=== PATIENT | female | born 1990 | race African-American/Black ===

== ENCOUNTER 2019-10-03 17:24 | Emergency (ER) | payer OTHER, SELFPAY ==
--- NOTE | 2019-10-03 17:30 | ED.URI ---
HPI - URI/Sore Throat General Chief Complaint: Upper Respiratory Infection Stated Complaint: sore throat Time Seen by Provider: 10/03/19 17:30 Source: patient and RN notes reviewed History of Present Illness HPI Narrative: Patient is a 29-year-old female that presents the urgent care with complaints of sore throat that started last night. Patient states she has been very fatigued throughout the day and woke up after her nap feeling like a truck hit her . Patient states she now has chills and sweats along with body aches, runny nose. Denies any known fever, nausea, vomiting. Patient has used 1 dose of NyQuil for her symptoms. No other acute complaints. No acute distress noted. Patient read the plan of care. Related Data Home Medications Medication Instructions Recorded Confirmed No Home Medications 10/03/19 10/03/19 Allergies Allergy/AdvReac Type Severity Reaction Status Date / Time No Known Allergies Allergy Unverified 10/03/19 17:31 Review of Systems Review of Systems: Narrative: CONSTITUTIONAL: Reports of chills, sweats, fatigue EYES: Denies visual changes, redness, or discharge. ENT: Reports of sore throat CARDIOVASCULAR: Denies chest pain, palpitations, or edema. RESPIRATORY: Denies cough or dyspnea. GASTROINTESTINAL: Denies abdominal pain, nausea, vomiting, or diarrhea. GENITOURINARY: Denies dysuria or hematuria. SKIN: Denies rash or itching. MUSCULOSKELETAL: Denies back pain, joint pain,; reports of body aches NEUROLOGIC: Denies headache, numbness, or weakness. All other systems reviewed are negative, except as documented in HPI. PMFSH Comments At the time of my signature, I reviewed and agree with the nursing past medical, surgical, social, and family history. There is no relevant family history pertinent to the patient complaint. Exam Narrative: Exam Narrative: GENERAL: This is a well-nourished, well-developed patient, appears slightly fatigued HEAD: normocephalic, atraumatic. EYES: PERRL. Sclera clear/white. Vision is grossly intact. EARS: External ears normal, auditory canals clear and without drainage, TMs normal without perforation. Hearing grossly intact. NOSE: External nose normal with no obvious nasal discharge, nares without redness, clear rhinorrhea. THROAT: Mucous membranes moist, posterior pharynx clear. Mild postnasal drainage NECK: Neck supple, non-tender without lymphadenopathy CARDIOVASCULAR: Regular rate and rhythm without murmurs, gallops, or rubs. RESPIRATORY: Clear to auscultation. Breath sounds equal bilaterally. No wheezes, rales, or rhonchi. SKIN: warm, intact with no suspicious lesions or rash, good texture and turgor. NEURO: awake, alert, and oriented to person, place and time. There were no obvious focal neurologic abnormalities. EXTREMITIES: No clubbing, cyanosis, or edema. Course Vital Signs Vital signs: Vital Signs Temperature 97.9 F 10/03/19 17:34 Pulse Rate 70 10/03/19 17:34 Respiratory Rate 16 10/03/19 17:34 Blood Pressure 144/92 H 10/03/19 17:34 Pulse Oximetry 100 10/03/19 17:34 Temperature 97.9 F 10/03/19 17:34 Pulse Rate 70 10/03/19 17:34 Respiratory Rate 16 10/03/19 17:34 Blood Pressure 144/92 H 10/03/19 17:34 Pulse Oximetry 100 10/03/19 17:34 Reviewed?patient is informed that they may have pre-hypertension or hypertension based on a blood pressure reading in the department. I recommend the patient call the primary care provider listed on their discharge instructions or a physician of their choice this week to arrange follow-up for further evaluation of possible pre-hypertension or hypertension. MDM - URI/Sore Throat MDM Narrative Medical decision making narrative: Reviewed lab results with the patient. She is aware that strep swab negative. Educated her on culture and will call within 72 hours if culture is positive and antibiotics are necessary. Aware that flu swab was negative. Advised the patient to use Claritin and Merlin
[2019-10-03 17:34] VITALS: BP 144/92; PULSE 70; RESP 16; TEMP 36.6; O2SAT 100
== END 2019-10-03 18:18 | disposition home or self-care (01) ==
PROVIDERS: Emergency Provider Nurse Practitioner Family
DX: J06.9 Acute upper respiratory infection, unspecified (principal); J02.9 Acute pharyngitis, unspecified
CPT/HCPCS: 87081; 87804; 87880; 99203; G0463

== ENCOUNTER 2019-10-11 18:16 | Emergency (ER) | payer OTHER, SELFPAY ==
[2019-10-11 18:23] VITALS: BP 158/93; PULSE 82; RESP 19; TEMP 37.6; O2SAT 100
--- NOTE | 2019-10-11 18:25 | ED.GENADULT ---
HPI - General Adult General Chief complaint: Upper Respiratory Infection Stated complaint: cough/chest hurts Time Seen by Provider: 10/11/19 18:30 Source: patient and RN notes reviewed Mode of arrival: ambulatory Limitations: no limitations History of Present Illness HPI narrative: This is a 29 years old female presents to the office for possible flu. Stated she was seen for cold symptoms a week ago, her symptom has gotten better with [id number] DayQuil however her daughter was diagnosed with influenza on Friday, she was concerned that she might influenza as well. State, she still has runny nose, cough and drainage. She does not smoke. I reviewed patient's previous visit. HPI - URI/Sore Throat General Chief Complaint: Upper Respiratory Infection Stated Complaint: sore throat Time Seen by Provider: 10/03/19 17:30 Source: patient and RN notes reviewed History of Present Illness HPI Narrative: Patient is a 29-year-old female that presents the urgent care with complaints of sore throat that started last night. Patient states she has been very fatigued throughout the day and woke up after her nap feeling like a truck hit her . Patient states she now has chills and sweats along with body aches, runny nose. Denies any known fever, nausea, vomiting. Patient has used 1 dose of NyQuil for her symptoms. No other acute complaints. No acute distress noted. Patient read the plan of care. Related Data Allergies Allergy/AdvReac Type Severity Reaction Status Date / Time No Known Allergies Allergy Unverified 10/03/19 17:31 Review of Systems Review of Systems: Narrative: CONSTITUTIONAL: Denies fever ENT: Denies ears pain. Reports runny nose, sneezing CARDIOVASCULAR: Denies chest pain RESPIRATORY: Denies dyspnea. Reports dry/deep cough GASTROINTESTINAL: Denies abdominal pain, nausea, vomiting, diarrhea. GENITOURINARY: Denies urinary symptoms or discharge SKIN: Denies rash MUSCULOSKELETAL: Denies acute back pain NEUROLOGIC: Denies lightheaded PMFSH Family History Family History Other Diabetes mellitus Hypothyroid Comments At time of signature, I agree with nursing past medical, surgical, social and family history. There is no relevant family history pertinent to the presenting complaint. Exam Narrative: Exam Narrative: GENERAL: This is a well-nourished, well-developed patient, in no apparent distress. EYES: Sclera clear/white. Vision is grossly intact. EARS: External ears normal, auditory canals clear and without drainage, TMs normal without perforation. Hearing grossly intact. NOSE: External nose normal with no obvious nasal discharge, nares edematous and erythema. THROAT: Mucous membranes moist, posterior pharynx pink with drainage NECK: Neck supple, non-tender without lymphadenopathy, masses or thyromegaly. CARDIOVASCULAR: Regular rate and rhythm without murmurs, gallops, or rubs. RESPIRATORY: Clear to auscultation. Breath sounds equal bilaterally. No wheezes, rales, or rhonchi. GASTROINTESTINAL: Abdomen soft, non-tender, nondistended. Bowel sounds are active. No guarding. NEURO: awake, alert, and oriented to person, place and time. There were no obvious focal neurologic abnormalities. Steady gait Gypsy Coma Scale Eye Opening: Spontaneous 4 Gypsy Coma Scale Motor: Obeys Commands 6 Gypsy Coma Scale Verbal: Oriented 5 Course Vital Signs Vital signs: Vital Signs Temperature 99.6 F 10/11/19 18:23 Pulse Rate 82 10/11/19 18:23 Respiratory Rate 19 10/11/19 18:23 Blood Pressure 158/93 H 10/11/19 18:23 Pulse Oximetry 100 10/11/19 18:23 Temperature 99.6 F 10/11/19 18:23 Pulse Rate 82 10/11/19 18:23 Respiratory Rate 19 10/11/19 18:23 Blood Pressure 158/93 H 10/11/19 18:23 Pulse Oximetry 100 10/11/19 18:23 Medical Decision Making MDM Narrative Medical decision making narrative: Elevated BP noted: patient is informed
== END 2019-10-11 18:53 | disposition home or self-care (01) ==
PROVIDERS: Emergency Provider Nurse Practitioner
DX: J06.9 Acute upper respiratory infection, unspecified (principal)
CPT/HCPCS: 87804; 99213; G0463

== ENCOUNTER 2019-11-08 07:48 | Emergency (ER) | payer OTHER, SELFPAY ==
--- NOTE | ~2019-11-08 | XR_ITS ---
EXAMINATION: XR chest 2V DATE: 11/08/2019 08:33 INDICATION: Cough and shortness of breath TECHNIQUE: PA and lateral views of the chest are obtained. COMPARISON: None available FINDINGS: The lungs are free of acute opacities. There is no pleural effusion or pneumothorax. The ca rdiomediastinal silhouette is normal. The visualized bones and soft tissues are unremarkable. IMPRESSION: 1. No acute cardiopulmonary abnormality. Reviewed, dictated and finalized at location A.
[2019-11-08 07:58] VITALS: BP 155/97; PULSE 70; RESP 18; TEMP 36.8; O2SAT 100
--- NOTE | 2019-11-08 08:19 | PC.NURSE ---
PT TO XRAY AT THIS TIME PER TECH.
--- NOTE | 2019-11-08 08:22 | ED.URI ---
HPI - URI/Sore Throat General Chief Complaint: Upper Respiratory Infection Stated Complaint: COUGH/COLD S/SX Time Seen by Provider: 11/08/19 08:20 History of Present Illness HPI Narrative: 29 f c/o > a month of mild uri sx w/ prior [facility] [place] visits 4 and 5 weeks ago notes she just felt like it ought to be checked again today, nothing per se has changed mainly c/o sinus congestion and a postnasal drip causing a itchy, scratchy throat and ocassional cough no fever, no ill contacts, not sob she took theraflu but it did not resolve the symptoms MD elicited complaint: cough, rhinorrhea and nasal congestion Onset (ago): week(s) Severity: mild Description of mucous: clear Related Data Home Medications Medication Instructions Recorded Confirmed No Home Medications 11/08/19 11/08/19 Allergies Allergy/AdvReac Type Severity Reaction Status Date / Time No Known Allergies Allergy Unverified 11/08/19 08:02 Review of Systems Constitutional: Constitutional: Denies chills, Denies fatigue, Denies fever(s) and Denies weakness ENT: Reports system reviewed and no additional complaints, except as documented Cardiovascular: Cardiovascular: Reports no additional cardiovascular complaints Respiratory: Respiratory: Reports cough, Denies dyspnea and Denies wheezing Gastrointestinal: Gastrointestinal: Denies nausea and Denies vomiting Musculoskeletal: Musculoskeletal: Denies myalgias and Denies arthralgias Neurologic: Denies focal weakness [facility] Social History Social History Gender identity (if verbalized by the patient): Female Exam Const: General: no acute distress and alert Orientation/consciousness: patient oriented x3 Eyes: Conjunctivae: conjunctivae normal EOM: EOMs intact bilaterally Neck: Neck: normal visual inspection Chest: Chest palpation & inspection: normal inspection of the chest Resp: Effort & Inspection: normal respiratory effort Cardio: Rate: regular rate Skin: General skin exam: normal color Rashes: no rashes Neuro: General: patient oriented x3 and moves all extremities Course Vital Signs Vital signs: Vital Signs Temperature 36.8 C 11/08/19 07:58 Pulse Rate 70 11/08/19 07:58 Respiratory Rate 18 11/08/19 07:58 Blood Pressure 155/97 H 11/08/19 07:58 Pulse Oximetry 100 11/08/19 07:58 Temperature 36.8 C 11/08/19 07:58 Pulse Rate 78 11/08/19 10:25 Respiratory Rate 16 11/08/19 10:25 Blood Pressure 154/78 H 11/08/19 10:25 Pulse Oximetry 100 11/08/19 10:25 MDM - URI/Sore Throat Lab Data Result diagrams: 11/08/19 08:18 Labs: Lab Results 11/08/19 Range/Units 08:18 WBC 7.8 (4.5-10.0) K/mm3 RBC 4.64 (4.2-5.4) M/mm3 Hgb 12.0 (12.0-15.0) g/dL Hct 39.0 (37.0-47.0) % MCV 84.1 (80-100) fl MCH 25.9 L (26-34) pg MCHC 30.8 L (32-36) g/dl RDW 13.4 (11.5-14.5) % Plt Count 197 (150-375) k/mm3 MPV 12.8 H (7.4-10.4) fl Immature Gran % (Auto) 0.3 (0-0.5) % Neut % (Auto) 51.6 (45.5-73.1) % Lymph % (Auto) 38.6 (18.3-44.2) % [place] % (Auto) 7.9 (2.6-8.5) % Eos % (Auto) 1.2 (0-4.4) % Baso % (Auto) 0.4 (0.2-1.2) % Lymph # (Auto) 3.01 (0.9-3.2) K/mm3 [place] # (Auto) 0.6 (0.1-0.6) K/mm3 Eos # (Auto) 0.1 (0-0.3) K/mm3 Baso # (Auto) 0.0 (0.0-0.1) K/mm3 Abs Immat Gran (auto) 0.02 (0.00-0.031) K/mm3 Absolute Neuts (auto) 4.0 (1.3-6.7) K/mm3 Absolute Nucleated RBC 0.0 (0.0-0.012) K/mm3 Nucleated RBC % 0.0 (0.0-0.2) % Discharge Plan Discharge Clinical Impression: Rhinitis Patient Disposition: Home, Self-Care Condition: Stable Instructions: Antibiotic Form, Allergic Rhinitis (ED) Additional Instructions: recommend over the counter antihistamine (Zyrtec) daily for 30 days over the counter decongestant as needed Prescriptions: No Action No Home Medications RF: 0 Follow-up/Referrals: P
[2019-11-08 08:23] LABS: Basophils Percent Auto 0.4 % (0.2-1.2); Eosinophils Absolute Auto 0.1 K/mm3 (0-0.3); Eosinophils Percent Auto 1.2 % (0-4.4); Immature Granulocyte Absolute 0.02 K/mm3 (0.00-0.031); Immature Granulocyte Percent A 0.3 % (0-0.5); Lymphocytes Absolute Auto 3.01 K/mm3 (0.9-3.2); Lymphocytes Percent Auto 38.6 % (18.3-44.2); Mean Corpuscular HGB Conc 30.8 g/dl (32-36); Mean Corpuscular Hemoglobin 25.9 pg (26-34); Mean Corpuscular Volume 84.1 fl (80-100); Mean Platelet Volume 12.8 fl (7.4-10.4); Monocytes Absolute Auto 0.6 K/mm3 (0.1-0.6); Monocytes Percent Auto 7.9 % (2.6-8.5); Neutrophils Percent Auto 51.6 % (45.5-73.1); Platelet Count Result 197 k/mm3 (150-375); Red Blood Count 4.64 M/mm3 (4.2-5.4); Red Cell Distribution Width 13.4 % (11.5-14.5); White Blood Count 7.8 K/mm3 (4.5-10.0)
[2019-11-08 10:25] VITALS: BP 154/78; PULSE 78; RESP 16; O2SAT 100
== END 2019-11-08 11:37 | disposition home or self-care (01) ==
PROVIDERS: Emergency Provider Emergency Medicine
DX: J31.0 Chronic rhinitis (principal)
CPT/HCPCS: 36415; 71046; 85025; 99283

== ENCOUNTER 2021-01-31 17:27 | Emergency (ER) | payer OTHER, SELFPAY ==
[2021-01-31 17:33] VITALS: BP 155/97; PULSE 84; RESP 16; TEMP 36.8; O2SAT 100
--- NOTE | 2021-01-31 18:00 | ED.URI ---
HPI - URI/Sore Throat General Chief Complaint: Upper Respiratory Infection Stated Complaint: COUGH/CONGESTION Source: patient and RN notes reviewed Limitations: no limitations History of Present Illness HPI Narrative: The patient, non-smoker/occasional drinker, presents with a weeklong history of congestion, cough, sore throat. This was associated with nonbilious emesis x1 today; no fever, earache, wheezing. She works at [employer]; no Covid vaccination-no CP, loss of taste/smell, S OB, frequency/urgency/dysuria Related Data Allergies Allergy/AdvReac Type Severity Reaction Status Date / Time No Known Allergies Allergy Unverified 11/08/19 08:02 Review of Systems Review of Systems: Narrative: The patient has been informed that they may have pre-hypertension or Hypertension based on a BP reading in the department. I recommend that the patient call the primary care provider listed on their discharge instructions or a physician of their choice this week to arrange follow up for further evaluation of possible pre-hypertension or Hypertension General/Constitutional: No weight loss,fever Eyes: N0: Redness,discharge Ears/Nose/Throat: No: Epistaxis,ear discharge Respiratory: Denies: Hemoptysis Gastrointestinal: No Vomiting, Bleeding-rectal Skin: No Lumps, eruption Neurologic: No Focal Weakness,Sz Hematologic: Denies: Petechiae/Purpura Psychiatric: No: Suicida ideationl All Other Systems: Reviewed and Negative PMFSH Family History Family History Other Diabetes mellitus Hypothyroid Social History Social History Gender identity (if verbalized by the patient): Female Comments At time of signature, agree with nursing past medical, surgical, social and family history. There is no relevant family history pertinent to the presenting complaint Exam Narrative: Exam Narrative: General Appearance: Well appearing, Well nourished/overweight, Conjunctiva clear Ears: Auditory canal normal, TM normal Nose: Rhinorrhea, Mucousal erythema Mouth/Throat: MM moist, Uvula midline, Pharyngeal erythema Neck: Supple, No adenopathy Respiratory: No respiratory distress, Breath sounds equal, Clear to auscultation Cardiovascular: RRR, No JVD Musculoskeletal: Non tender, Normal strength Skin: Warm, Dry Neurological: A&O x3,, Normal affect Course Vital Signs Vital signs: Vital Signs Temperature 98.3 F 01/31/21 17:33 Pulse Rate 84 01/31/21 17:33 Respiratory Rate 16 01/31/21 17:33 Blood Pressure 155/97 H 01/31/21 17:33 Pulse Oximetry 100 01/31/21 17:33 Temperature 98.3 F 01/31/21 17:33 Pulse Rate 84 01/31/21 17:33 Respiratory Rate 16 01/31/21 17:33 Blood Pressure 155/97 H 01/31/21 17:33 Pulse Oximetry 100 01/31/21 17:33 MDM - URI/Sore Throat Lab Data Labs: Lab Results 01/31/21 Range/Units Unknown SARS-CoV-2 RNA (RT-PCR) Pending Discharge Plan Discharge Clinical Impression: Elevated BP without diagnosis of hypertension Upper respiratory infection Qualifiers: URI type: unspecified URI Qualified Code(s): J06.9 - Acute upper respiratory infection, unspecified Patient Disposition: Home, Self-Care Condition: Stable Instructions: Antibiotic Form, Acute Bronchitis (ED) Prescriptions: New azithromycin 250 mg tablet See Rx Instructions .ROUTE .COMPLEX Qty: 6 RF: 0 benzonatate [Tessalon Perles] 100 mg capsule 100 mg PO TID Qty: 20 RF: 1 azelastine 137 mcg (0.1 %) aerosol,spray 137 mcg NASAL Q12H Qty: 30 RF: 0 Follow-up/Referrals: PHYSICIAN,[employer]NAGER [Primary Care Provider] -
[2021-02-03 16:57] LABS: SARS-CoV-2 RNA PCR Negative
== END 2021-01-31 18:07 | disposition home or self-care (01) ==
PROVIDERS: Emergency Provider Emergency Medicine
DX: J06.9 Acute upper respiratory infection, unspecified (principal); R03.0 Elevated blood-pressure reading, without diagnosis of hypertension; Z20.822 Contact with and (suspected) exposure to COVID-19
CPT/HCPCS: 99213; C9803; G0463; U0003; U0005

== ENCOUNTER 2021-04-01 11:42 | Emergency (ER) | payer OTHER, SELFPAY ==
[2021-04-01 11:46] VITALS: BP 150/89; PULSE 92; RESP 17; TEMP 36.6; O2SAT 100
[2021-04-01 12:25] VITALS: O2SAT 100
--- NOTE | 2021-04-01 13:08 | ED.URI ---
HPI - URI/Sore Throat General Chief Complaint: Upper Respiratory Infection Stated Complaint: sore throat/ear pain/congestion Time Seen by Provider: 04/01/21 12:26 Source: patient Mode of arrival: ambulatory Limitations: no limitations History of Present Illness HPI Narrative: This is a 31-year-old female that presents to the emergency department for sore throat x3 days. Associated with rhinorrhea and otalgia. She was seen at another facility for this and had a negative strep swab. She presents today as her symptoms are not improving. Denies fever or cough. Related Data Home Medications Medication Instructions Recorded Confirmed No Home Medications 04/01/21 04/01/21 Allergies Allergy/AdvReac Type Severity Reaction Status Date / Time No Known Allergies Allergy Verified 04/01/21 11:48 Review of Systems Review of Systems: CONSTITUTIONAL: Denies fever, ENT: Reports rhinorrhea, sore throat, and otalgia. RESPIRATORY: Denies cough All systems reviewed & are unremarkable except as noted in HPI and below PMFSH Past Medical History Medical History (Updated 04/01/21 @ 15:51 by Catrina Adkins PA-C) History of hypothyroidism Family History Family History Other Diabetes mellitus Hypothyroid Social History Social History (Updated 04/01/21 @ 13:09 by Catrina Adkins PA-C) Smoking status: Never smoker Gender identity (if verbalized by the patient): Female Exam Narrative: GENERAL: Well-appearing, well-nourished, and in no acute distress. HEAD: Normocephalic, atraumatic. EYES: EOMI. ENT: Nares clear, no rhinorrhea or epistaxis. Mucous membranes moist. Oropharynx with mild tonsillar hypertrophy and exudate, no other lesions. Uvula is midline. Bilateral TMs pearly [place] non-bulging NECK: Supple. No adenopathy or masses. CHEST: Clear to auscultation. No respiratory distress. No wheezes rales or rhonchi HEART: Regular rate and rhythm. No murmur heard. Normal peripheral pulses. EXTREMITIES: Normal range of motion. No edema. SKIN: Warm, dry, no rash. NEURO: No focal deficits. Alert and oriented x3. PSYCH: Normal mood and affect Course Vital Signs Vital signs: Vital Signs Temperature 97.8 F 04/01/21 11:46 Pulse Rate 92 04/01/21 11:46 Respiratory Rate 17 04/01/21 11:46 Blood Pressure 150/89 H 04/01/21 11:46 Pulse Oximetry 100 04/01/21 11:46 Temperature 98.7 F 04/01/21 14:14 Pulse Rate 69 04/01/21 14:14 Respiratory Rate 18 04/01/21 14:14 Blood Pressure 148/95 H 04/01/21 14:14 Pulse Oximetry 97 04/01/21 14:14 MDM - URI/Sore Throat MDM Narrative Medical decision making narrative: Patient presents the emergency department for sore throat noted over the last couple of days. She is afebrile and nontoxic-appearing. Does have symmetric tonsillar hypertrophy and redness. Uvula is midline. Strep screen is negative. [place] screen is also negative. Patient instructed on care of viral pharyngitis. She is to follow-up with her primary care doctor. She was given warnings to return to the ER Lab Data Attestation: I reviewed the patient's lab results. Labs: Lab Results 04/01/21 Range/Units 14:22 Monoscreen Negative (Negative) Strep Screen Presumptive Negative *(Reference Range: Negative)* Critical Care Time Critical Care Time Critical Care Time: No Discharge Plan Discharge Clinical Impression: Pharyngitis Qualifiers: Pharyngitis/tonsillitis etiology: unspecified etiology Qualified Code(s): J02.9 - Acute pharyngitis, unspecified Patient Disposition: Home, Self-Care Condition: Stable Instructions: Pharyngitis (ED) Additional Instructions: Return to the emergency department for fever greater than 101, difficulty swallowing, trouble breathing, or any other symptoms that are concerning to you Remain well-hydrated, get plenty of rest.
[2021-04-01 14:14] VITALS: BP 148/95; PULSE 69; RESP 18; TEMP 37.1; O2SAT 97
--- NOTE | 2021-04-01 14:20 | PC.NURSE ---
Patient is curious if she is able to work tonight. Also wants to know if she is able to leave and have something prescribed if the mono test comes back positive. Will notify the provider.
[2021-04-01 15:01] LABS: Monoscreen Negative (Negative); Negative Monotest Control Negative (Negative); Positive Monotest Control Positive (Positive)
--- NOTE | 2021-04-01 16:00 | PC.NURSE ---
ED PA notified that patient had been asking about being discharged. ED PA reports that she has recently spoken with the patient an informed her that she will get paperwork together and the patient will be discharged soon. After paperwork was brought to the nurses station I went to the room to discharge the patient and she had left the ED. No patient in room and no belongings in room. Patient left the ED before signing discharge paperwork but after speaking with the ED PA about discharge.
== END 2021-04-01 16:00 | disposition home or self-care (01) ==
PROVIDERS: Physician Assistant; Emergency Provider Emergency Medicine; PCP Family Medicine
DX: J02.9 Acute pharyngitis, unspecified (principal); E03.9 Hypothyroidism, unspecified
CPT/HCPCS: 36415; 86308; 87081; 87880; 99283

== ENCOUNTER 2021-11-14 12:48 | Outpatient (CLI) | payer OTHER, SELFPAY ==
--- NOTE | ~2021-11-14 | US_ITS ---
EXAMINATION: US pelvic complete DATE: 11/14/2021 13:10 INDICATION: Pelvic and perineal pain, dyspareunia. . LMP 11/10/21. TECHNIQUE: Multiple transabdominal sonographic images of the pelvis were obtained. COMPARISON: None. FINDINGS: The uterus measures 8.1 x 3.9 x 4.9 cm. The endometrial complex measures 0.5. The left ovar y measures 3.4 x 2.0 x 2.6 cm. The right ovary measures 4.2 x 2.3 x 2.0 cm. No adnexal mass. Normal b ilateral color Doppler ovarian flow. There is no free fluid in the pelvis. IMPRESSION: 1. Normal transabdominal pelvic ultrasound findings. Reviewed, dictated and finalized at location K.
== END 2021-11-14 12:49 ==
PROVIDERS: Visit Provider Nurse Practitioner
DX: R10.2 Pelvic and perineal pain (principal)
CPT/HCPCS: 76856

== ENCOUNTER 2021-11-24 15:06 | Emergency (ER) | payer OTHER, SELFPAY ==
--- NOTE | ~2021-11-24 | XR_ITS ---
EXAMINATION: XR chest 2V Exam Date/Time: 11/24/2021 15:45 CDT CLINICAL HISTORY: COUGH Comparison: 11/08/2019.. RESULT: Lines, tubes, and devices: None. Lungs and pleura: Clear. Cardiomediastinal silhouette: Stable cardiomediastinal silhouette. Other: No acute osseous or upper abdominal finding. IMPRESSION: No acute cardiopulmonary process Reviewed, dictated and finalized at location [facility].
[2021-11-24 15:23] VITALS: BP 145/93; PULSE 101; RESP 16; TEMP 37.2; O2SAT 100
--- NOTE | 2021-11-24 15:50 | ED.GENADULT ---
HPI - General Adult General Chief complaint: Upper Respiratory Infection Stated complaint: runny nose,chest jonelle,cough Source: patient Mode of arrival: ambulatory Limitations: no limitations History of Present Illness HPI narrative: Patient presents for evaluation of sick symptoms. Approximately three weeks ago, she had a sore throat. This progressed and she developed runny nose, nasal/chest congestion, and pleuritic chest pain. No fever, chills, nausea, vomiting or diarrhea. She had COVID in August of this year. She did not receive COVID vaccination. Her daughter is here being examined for similar symptoms. She does no smoke. No identified sick contacts prior to time of symptom onset. She has been taking some OTC therapies without considerable improvement in her symptoms. Her symptoms seem worse after going to [email or web address] this week Friday. Related Data Allergies Allergy/AdvReac Type Severity Reaction Status Date / Time No Known Allergies Allergy Verified 04/01/21 11:48 Review of Systems Review of Systems: CONSTITUTIONAL: Denies fever, chills, or sweats. EYES: Denies visual changes, redness, or discharge. ENT: Reports sore throat, rhinorrhea, sinus congestion CARDIOVASCULAR: Reports pleuritic chest pain. Denies chest pain otherwise. Denies palpitations, or edema. RESPIRATORY:Reports chest congestion and cough. Denies SOB GASTROINTESTINAL: Denies abdominal pain, nausea, vomiting, or diarrhea. GENITOURINARY: Denies dysuria or hematuria. SKIN: Denies rash or itching. MUSCULOSKELETAL: Denies back pain, joint pain, or myalgia. NEUROLOGIC: Denies headache, numbness, dizziness, or weakness. PSYCHIATRIC: Denies anxiety or depression. [facility] Past Medical History Medical History (Updated 11/24/21 @ 16:29 by ELEAZAR Fong, ) History of hypothyroidism Surgical History Surgical History No pertinent past surgical history Family History Family History Other Diabetes mellitus Hypothyroid Social History Social History Smoking status: Never smoker Alcohol intake: never Substance use: never Gender identity (if verbalized by the patient): Female Sexual Orientation (if Verbalized by the Patient): Straight or Heterosexual Spiritual care concerns: No Exam Narrative: GENERAL: Well-appearing, well-nourished, and in no acute distress. HEAD: Normocephalic, atraumatic. EYES: PERRLA and EOMI. ENT: Nares clear, no rhinorrhea or epistaxis. Mucous membranes moist. Oropharynx without tonsillar hypertrophy exudate or other lesions. Bilateral TMs pearly [place] nonbulging NECK: Supple. No adenopathy or masses. No carotid bruits or JVD CHEST: Cough noted on exam. Clear to auscultation. No respiratory distress. No wheezes rales or rhonchi HEART: Regular rate and rhythm. No murmur heard. Normal peripheral pulses. ABDOMEN: Soft, nontender, nondistended, normal active bowel sounds. EXTREMITIES: Normal range of motion. No edema. SKIN: Warm, dry, no rash. NEURO: No focal deficits. Alert and oriented x3. PSYCH: Normal mood and affect. Course Course Emergency Course: This is a 31-year-old female who presented with sick symptoms. COVID, influenza and strep were all negative. CXR without evidence of pneumonia. Daughter was evaluated here today at same time and had influenza a. Pt symptoms consistent with that as well. We will treat with flu. Follow-up outpatient for further evaluation and treatment return for worsening symptoms. Patient agreed with plan of care. Level of Care: Express Care Visit Vital Signs Vital signs: Vital Signs Temperature 37.2 C 11/24/21 15:23 Pulse Rate 101 H 11/24/21 15:23 Respiratory Rate 16 11/24/21 15:23 Blood Pressure 145/93 H 11/24/21 15:23 Pulse Oximetry 100 11/24/21 15:23
== END 2021-11-24 16:37 | disposition home or self-care (01) ==
PROVIDERS: Emergency Provider Nurse Practitioner; PCP Emergency Medicine
DX: Z20.828 Contact with and (suspected) exposure to other viral communicable diseases (principal); Z20.822 Contact with and (suspected) exposure to COVID-19; E03.9 Hypothyroidism, unspecified; Z86.16 Personal history of COVID-19; Z28.310 Unvaccinated for COVID-19
CPT/HCPCS: 71046; 87081; 87426; 87804; 87880; 99213; C9803; G0463

== ENCOUNTER 2022-01-28 08:36 | Emergency (ER) | payer OTHER, SELFPAY ==
--- NOTE | ~2022-01-28 | CT_ITS ---
EXAMINATION: CT cervical spine wo con DATE: 01/28/2022 09:07 INDICATION: Head trauma. Chronic neck pain for one month. TECHNIQUE: Computed tomography (CT) of the cervical spine was performed without intravenous contrast. Automated exposure control and iterative reconstruction technique were employed. Exam dose: 507.02 mGy-cm total exam DLP. COMPARISON: None FINDINGS: There is reversal of curvature which may be due to positioning or muscle spasm. C1 and C2 are normally aligned and the odontoid process is intact. Cervical interspaces are preserved . No fracture or dislocation, locked facet or prevertebral soft tissue swelling.. IMPRESSION: Reversal of cervical curvature; otherwise negative Reviewed, dictated and finalized at [facility]. Reviewed, dictated and finalized at location [facility].
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
[2022-01-28 08:45] VITALS: BP 150/92; PULSE 81; RESP 20; TEMP 36.7; O2SAT 100
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
[2022-01-28] MEDS: IBUPROFEN 600 MG TABLET PO (09:35)
== END 2022-01-28 09:35 | disposition home or self-care (01) ==
PROVIDERS: Emergency Provider Emergency Medicine; PCP Emergency Medicine
DX: S00.93XA Contusion of unspecified part of head, initial encounter (principal); S16.1XXA Strain of muscle, fascia and tendon at neck level, initial encounter; E03.9 Hypothyroidism, unspecified; W22.8XXA Striking against or struck by other objects, initial encounter
CPT/HCPCS: 70450; 72125; 99284; A9270

== ENCOUNTER 2023-04-28 09:12 | Outpatient (CLI) | payer OTHER, SELFPAY ==
--- NOTE | ~2023-04-28 | MMUS_ITS ---
EXAMINATION: MM diagnostic gregory BI w bib, US breast RT complete HISTORY: Right breast tenderness and lumpiness TECHNIQUE: Additional 3-D tomosynthesis images of the breasts were performed and synthetic 2-D images were generated. CAD analysis was submitted and interpreted. High resolution complete right breast ul trasound was performed. COMPARISON: None BREAST PARENCHYMAL COMPOSITION: The breasts are heterogeneously dense, which may obscure small masses FINDINGS: MAMMOGRAPHIC FINDINGS: There are no suspicious masses, calcifications or architectural distortion in the right breast to sug gest malignancy. ULTRASOUND: Complete US of all 4 quadrants of the right breast and retroareolar region was reviewed. There are 2 adjacent cysts at 12:00, 2 cm from the nipple, largest measuring 7 mm. No suspicious masses in the ri ght breast to suggest malignancy. IMPRESSION: 1. No evidence for malignancy in either breast. Benign findings. 2. Routine yearly screening mammogram and regular clinical breast examination are recommended. BI-RADS Category 2: Benign finding(s). Reviewed, dictated and finalized at location A. IMPRESSION: 1. No evidence for malignancy in either breast. Benign findings. 2. Routine yearly screening mammogram and regular clinical breast examination a re recommended. BI-RADS Category 2: Benign finding(s).
== END 2023-04-28 09:13 ==
LOC: MICIMG 09:13
PROVIDERS: PCP Nurse Practitioner; Visit Provider Nurse Practitioner
DX: N64.4 Mastodynia (principal)
CPT/HCPCS: 76641; 77062; 77066; G0279

== ENCOUNTER 2023-12-10 07:48 | Emergency (ER) | payer BC, SELFPAY ==
[2023-12-10 07:54] VITALS: BP 169/99; PULSE 88; RESP 16; TEMP 36.7; O2SAT 100
[2023-12-10 08:10] VITALS: BP 169/99; PULSE 95; RESP 16; O2SAT 100
[2023-12-10] MEDS: KETOROLAC 30 MG/ML VIAL (*BKC) IV PUSH (08:32)
[2023-12-10 08:39] LABS: Basophils Percent Auto 0.3 % (0.2-1.2); Eosinophils Absolute Auto 0.1 K/mm3 (0-0.3); Eosinophils Percent Auto 0.7 % (0-4.4); Hemoglobin 11.8 g/dL (12.0-15.0); Immature Granulocyte Absolute 0.02 K/mm3 (0.00-0.031); Immature Granulocyte Percent A 0.3 % (0-0.5); Lymphocytes Absolute Auto 1.69 K/mm3 (0.9-3.2); Lymphocytes Percent Auto 23.7 % (18.3-44.2); Mean Corpuscular HGB Conc 31.1 g/dl (32-36); Mean Corpuscular Hemoglobin 24.7 pg (26-34); Mean Corpuscular Volume 79.7 fl (80-100); Mean Platelet Volume 12.4 fl (7.4-10.4); Monocytes Absolute Auto 0.6 K/mm3 (0.1-0.6); Monocytes Percent Auto 8.8 % (2.6-8.5); Neutrophils Absolute Auto 4.7 K/mm3 (1.3-6.7); Neutrophils Percent Auto 66.2 % (45.5-73.1); Platelet Count Result 258 k/mm3 (150-375); Red Blood Count 4.77 M/mm3 (4.2-5.4); Red Cell Distribution Width 14.2 % (11.5-14.5); White Blood Count 7.1 K/mm3 (4.5-10.0)
[2023-12-10 08:49] LABS: Alanine Aminotransferase 21 U/L (6-35); Albumin Level 4.3 g/dL (3.5-5.1); Alkaline Phosphatase 89 U/L (38-126); Anion Gap 6 mmol/L (4-12); Aspartate Amino Transferase 29 U/L (14-36); Bilirubin,Total 0.5 mg/dL (0.2-1.3); Blood Urea Nitrogen 12 mg/dL (7-17); Carbon Dioxide 25 mmol/L (22-30); Chloride 106 mmol/L (98-107); Estimated CRCL calculation 136 ml/min; Estimated Glomerular Filt Rate > 60; Glucose 99 mg/dL (65-110); Magnesium 1.9 mg/dL (1.6-2.3); Potassium 4.3 mmol/L (3.4-5.0); Sodium 137 mmol/L (137-145)
[2023-12-10 09:00] VITALS: BP 139/90; PULSE 70; RESP 19; TEMP 36.6; O2SAT 99
--- NOTE | 2023-12-10 09:22 | ED.GENADULT ---
HPI - General Adult General Chief complaint: Headache Stated complaint: headache, htn Time Seen by Provider: 12/10/23 07:53 History of Present Illness HPI narrative: Patient is a 33-year-old female who presents ER with elevated blood pressures. Is been running above 120/80 which is caused her concern. She noticed this when trying to donate plasma few days ago. No previous history of hypertension. Patient reports mild throbbing headache. No fevers or chills or sweats. No chest pain or chest pressure. She reports blood pressures have been running in the 160s to 180s. Related Data Allergies Allergy/AdvReac Type Severity Reaction Status Date / Time No Known Allergies Allergy Verified 01/28/22 08:48 Review of Systems Review of Systems: All systems reviewed & are unremarkable except as noted in HPI and below Constitutional: Constitutional: Reports no additional constitutional complaints ENT: Reports system reviewed and no additional complaints, except as documented Cardiovascular: Cardiovascular: Reports no additional cardiovascular complaints Respiratory: Respiratory: Reports no additional respiratory complaints Neurologic: Reports headache(s), Denies focal weakness and Denies numbness PMFSH Past Medical History Medical History History of hypothyroidism Surgical History Surgical History No pertinent past surgical history Family History Family History Other Diabetes mellitus Hypothyroid Social History Social History Smoking status: Never smoker Alcohol intake: never Substance use: never Gender identity (if verbalized by the patient): Female Sexual Orientation (if Verbalized by the Patient): Straight or Heterosexual Spiritual care concerns: No Exam Narrative: GENERAL: Well-appearing, Morbidly obese, and in no acute distress. HEAD: Normocephalic, atraumatic. ENT: Mucous membranes moist. NECK: Supple. CHEST: Clear to auscultation. No respiratory distress. HEART: Regular rate and rhythm. Normal peripheral pulses. ABDOMEN: Soft, nontender, nondistended. EXTREMITIES: Normal range of motion. No edema. SKIN: Warm, dry, no rash. NEURO: Alert and oriented x3. PSYCH: Normal mood and affect. Course Course Emergency Course: patient resting comfortably. Blood pressure is variable while in the ER. Lab work unremarkable. Discharge home. Vital Signs Vital signs: Vital Signs Temperature 98.0 F 12/10/23 07:54 Pulse Rate 88 12/10/23 07:54 Respiratory Rate 16 12/10/23 07:54 Blood Pressure 169/99 H 12/10/23 07:54 Pulse Oximetry 100 12/10/23 07:54 Temperature 97.9 F 12/10/23 09:00 Pulse Rate 78 12/10/23 09:31 Respiratory Rate 12 12/10/23 09:31 Blood Pressure 152/100 H 12/10/23 09:31 Pulse Oximetry 99 12/10/23 09:31 Medical Decision Making Vital Signs Vital Signs: Vital Signs Temperature 98.0 F 12/10/23 07:54 Pulse Rate 88 12/10/23 07:54 Respiratory Rate 16 12/10/23 07:54 Blood Pressure 169/99 H 12/10/23 07:54 Pulse Oximetry 100 12/10/23 07:54 Temperature 97.9 F 12/10/23 09:00 Pulse Rate 78 12/10/23 09:31 Respiratory Rate 12 12/10/23 09:31 Blood Pressure 152/100 H 12/10/23 09:31 Pulse Oximetry 99 12/10/23 09:31 Lab Data 12/10/23 08:30 12/10/23 08:30 Labs: Lab Results 12/10/23 Range/Units 08:30 WBC 7.1 (4.5-10.0) K/mm3 RBC 4.77 (4.2-5.4) M/mm3 Hgb 11.8 L (12.0-15.0) g/dL Hct 38.0 (37.0-47.0) % MCV 79.7 L (80-100) fl MCH 24.7 L (26-34) pg MCHC 31.1 L (32-36) g/dl RDW 14.2 (11.5-14.5) % Plt Count 258 (150-375) k/mm3 MPV 12.4 H (7.4-10.4) fl Immature Gran % (Auto) 0.3 (0-0.5) % Neut % (Auto
[2023-12-10 09:31] VITALS: BP 152/100; PULSE 78; RESP 12; O2SAT 99
[2023-12-10 10:32] VITALS: BP 171/98; PULSE 78; RESP 16; TEMP 37; O2SAT 100
[2023-12-10 11:01] VITALS: BP 168/88; PULSE 82; RESP 16; TEMP 36.6; O2SAT 100
== END 2023-12-10 11:02 | disposition home or self-care (01) ==
PROVIDERS: Emergency Provider Emergency Medicine; PCP Nurse Practitioner Family
DX: R51.9 Headache, unspecified (principal); R03.0 Elevated blood-pressure reading, without diagnosis of hypertension; E03.9 Hypothyroidism, unspecified; E66.01 Morbid (severe) obesity due to excess calories; Z68.42 Body mass index [BMI] 45.0-49.9, adult
CPT/HCPCS: 36415; 80053; 83735; 85025; 96374; 99284; J1885